=== PATIENT | female | born 1940 | race Caucasian/White ===

== ENCOUNTER 2020-02-10 08:53 | Emergency (ER) | payer MEDICARE ==
[~2020-02-10] VITALS: Ht 157.5 cm; Wt 83.9 kg
[~2020-02-10 08:53] MED LIST: ASPIR 8181 MG PO; DILTIAZEM 24HR180 MG PO; LEVOTHYROXINE150 MCG PO; NORTRIPTYLINE H25 MG PO; SPIRONOLACTONE50 MG PO
[2020-02-10] MEDS ORDERED: ESCITALOPRAM OX10 MG PO (09:03)
[2020-02-10] MEDS ORDERED: CARBIDOPA-LEVO1 EAC5 PO (09:04)
[2020-02-10] MEDS ORDERED: CALCIUM500 M1 PO (09:04)
[2020-02-10] MEDS ORDERED: B COMPLEX1 EACH PO (09:05)
[2020-02-10] MEDS ORDERED: MULTIVITAMINS1 EAC7 PO (09:05)
--- NOTE | 2020-02-10 11:41 | EKG ---
[facility] [address] [facility] [place] [address] Signed Sinus rhythm with premature atrial complexes Otherwise normal ECG No previous ECGs available Confirmed by JULIENNE SCHMIDT MD ([id number] on 02/10/2020 11:40:57 AM Electronically Signed By: JULIENNE SCHMIDT MD 02/10/20 1141 PATIENT NAME: BESSY JACKMAN Electrocardiogram DATE OF : 36 PHYSICIAN: JULIENNE SCHMIDT MD REPORT #: [id number] REPORT IS CONFIDENTIAL AND NOT TO BE RELEASED WITHOUT AUTHORIZATION
== END 2020-02-10 13:05 | disposition home or self-care (01) ==
LOC: ED 08:53
DX: E83.42 Hypomagnesemia (principal); R10.9 Unspecified abdominal pain; E03.9 Hypothyroidism, unspecified; I10 Essential (primary) hypertension; Z87.891 Personal history of nicotine dependence; Z79.899 Other long term (current) drug therapy
CPT/HCPCS: 51701; 70450; 74176; 80053; 81001; 83690; 83735; 84484; 85025; 93005; 93010; 99284-25; J3475; J7040